=== PATIENT | male | born 1970 | race Caucasian/White ===

== ENCOUNTER → 2021-03-08 | Outpatient (CLI) | payer BC ==
[~2021-03-08] VITALS: Ht 175.3 cm; Wt 90.7 kg
[~2021-03-08] MED LIST: AMLODIPINE BES2.5 MG PO; LEVOFLOXACIN500 MG PO; LORTAB 5-325 M1 EACH PO; METRONIDAZOLE250 MG PO; PRINIVIL20 MG PO
== END ==
LOC: EROP 14:51
DX: U07.1 COVID-19 (principal); Z23 Encounter for immunization
CPT/HCPCS: 96365